=== PATIENT | female | born 1965 | race African-American/Black ===

== ENCOUNTER 2022-03-18 21:07 | Emergency (ER) | payer OTHER, MEDICAID ==
[~2022-03-18] VITALS: Ht 177.8 cm; Wt 176.0 kg
[2022-03-18 21:07] VITALS: BP_SYST 140; BP_SYST 162
[2022-03-18 22:00] LABS: BASOPHILS % (AUTO) 0.5 % (0.0-2.0); EOSINOPHILS # (AUTO) 0.2 K/uL (0.0-0.4); HEMATOCRIT 33.3 % (36-48); HEMOGLOBIN 10.6 g/dL (12.0-16.0); LYMPHOCYTES # (AUTO) 2.2 K/uL (1.0-5.5); LYMPHOCYTES % (AUTO) 26.9 % (20.5-51.5); MEAN CORPUSCULAR HEMOGLOBIN 24 pg (27-31); MEAN CORPUSCULAR HGB CONC 32 % (32-36); MEAN CORPUSCULAR VOLUME 74 fL (79.0-98.0); MONOCYTES # (AUTO) 0.5 K/uL (0.0-1.0); MONOCYTES % (AUTO) 6.2 % (1.7-9.3); NEUTROPHILS # (AUTO) 5.2 K/uL (1.8-7.7); NEUTROPHILS % (AUTO) 63.4 % (40.0-70.0); PLATELET COUNT (AUTO) 223 K/uL (130-430); RED BLOOD CELL COUNT(AUTO) 4.53 MIL/uL (4.2-6.2); RED CELL DISTRIBUTION WIDTH 20.4 % (9.0-15.0); WHITE BLOOD COUNT (AUTO) 8.1 K/uL (4.8-10.8)
[2022-03-18 22:08] LABS: ANION GAP 0 (5-15); CALCIUM 9.6 mg/dL (8.4-11.0); CHLORIDE 105 mmol/L (98-107); GLUCOSE 107 mg/dL (70-99); SODIUM SERUM 140 mmol/L (136-145); UREA NITROGEN, BLOOD 10 mg/dL (8-21)
[2022-03-18 22:09] LABS: GFR AFRICAN AMERICAN 133 mL/min (>90)
[2022-03-18 22:12] LABS: PROTHROMBIN TIME 10.3 SECS (9.5-12.5)
[2022-03-18 22:14] LABS: ALANINE AMINOTRANSFERASE 26 U/L (12-78); ALBUMIN 2.6 g/dL (3.4-4.8); ASPARTATE AMINOTRANSFERASE 27 U/L (10-37); TOTAL BILIRUBIN < 0.1 mg/dL (0.0-1.0)
[2022-03-18] MEDS ORDERED: IOHEXOL 350 mgI/mL, 150 ML INFUS..BTL IV ONE (23:17)
[2022-03-18] MEDS ORDERED: ONDANSETRON HCL 4 MG/2 ML VIAL IVP ONE (23:30)
[2022-03-18] MEDS ORDERED: MORPHINE 4 MG INJ. 4 MG/ML VIAL IVP ONE (23:30)
[2022-03-19] MEDS ORDERED: DEXAMETHASONE SOD PHOSPHATE 10 MG/ML VIAL IVP ONE (02:00)
[2022-03-19] MEDS ORDERED: fentaNYL CITRATE/PF 100 MCG/2 ML AMP IVP ONE (02:00)
[2022-03-19] MEDS ORDERED: PROCHLORPERAZINE EDISYLATE 10 MG/2 ML VIAL IVP ONE (02:00)
[2022-03-19] MEDS ORDERED: IPRATROPIUM/ALBUTEROL SULFATE 3 ML AMPUL.NEB (DUONEB) INH ONE ×2 (03:30→17:00)
[2022-03-19] MEDS ORDERED: KETOROLAC TROMETHAMINE 15 MG VIAL IVP ONE (03:30)
[2022-03-19] MEDS ORDERED: IPRATROPIUM/ALBUTEROL SULFATE 3 ML AMPUL.NEB (DUONEB) ONE (03:30)
[2022-03-19] MEDS ORDERED: DIPHENHYDRAMINE INJ 50 MG/ML VIAL IVP ONE (05:00)
[2022-03-19] MEDS ORDERED: NAPR-686 PO ×2 (05:07→16:55)
[2022-03-19] MEDS ORDERED: AUG875 PO ×2 (05:07→16:55)
[2022-03-19] MEDS ORDERED: GUAI5SYR PO ×2 (05:07→16:55)
[2022-03-19] MEDS ORDERED: DOXY100C5 PO ×2 (05:07→16:55)
[2022-03-19] MEDS ORDERED: cefTRIAXone 1 GM in D5W 50 ML IV ONE (05:15)
[2022-03-19] MEDS ORDERED: cefTRIAXone 1 GM VIAL ONE (05:21)
[2022-03-19] MEDS ORDERED: cefTRIAXone 1 GM in LIDOCAINE 1%, 20 ML MDV 2.1 ML IM ONE (06:30)
[2022-03-19 17:57] VITALS: BP_SYST 129
== END 2022-03-19 17:57 | disposition home or self-care (01) ==
LOC: SED 21:07
DX: J18.1 Lobar pneumonia, unspecified organism (principal); Z68.53 Body mass index [BMI] pediatric, 85th percentile to less than 95th percentile for age; R09.1 Pleurisy; E66.01 Morbid (severe) obesity due to excess calories; Z88.5 Allergy status to narcotic agent
CPT/HCPCS: 36415; 71045; 71275; 76376; 80053; 83880; 84484; 85025; 85379; 85610; 85730; 93005; 93971; 94640; 96372; 96374; 96375 ×2; 99285; J0696; J0780; J1100; J1200; J1885; J2001; J2270; J2405; J3010; Q9967